=== PATIENT | male | born 1980 | race Caucasian/White ===

== ENCOUNTER 2018-03-25 14:46 | Emergency (ER) | payer MEDICAID, SELFPAY ==
[2018-03-25 14:47] VITALS: BP 117/71; PULSE 67; RESP 16; TEMP 36.4; O2SAT 100; BMI 17.1
--- NOTE | 2018-03-25 15:54 | CT_ITS ---
STUDY: CT BRAIN WITHOUT CONTRAST REASON FOR EXAM: Male, 37 years old. Headache RADIATION DOSAGE (If Supplied By Facility): CTDIvol = ( 44.99 ) mGy, DLP = ( 779.24 ) mGycm TECHNIQUE: Transaxial CT imaging of the brain was performed without administration of intravenous contrast material. Individualized dose optimization techniques were used for this CT. COMPARISON: None. FINDINGS: Normal soft tissue structures. Normal calvarium. Normal size ventricles and extra-axial spaces for the patient's age. Normal white matter tracts of the cerebral hemispheres. Normal basal ganglia and thalami. Normal brainstem. Normal cerebellum. There is no intracranial hemorrhage. There are no findings of an acute ischemic infarction. Normal visualized paranasal sinuses. CT/Brain/Head without Contrast IMPRESSION: Normal unenhanced CT scan of the brain. Electronically Signed: Rick Cid MD at 16:49 EDT , Service support ,
[2018-03-25 16:16] LABS: Bacteria 0 SEEN /hpf (None Seen); Red Blood Cells-Urine 0 SEEN /hpf (0-5); Squamous Epithelial Cells - UA 0 SEEN /hpf (0-5); White Blood Cells 0 SEEN /hpf (0-5)
[2018-03-25 16:21] LABS: Absolute Lymphocyte Count 1.75 X10^3/ul (0.83-4.51); Absolute Neutrophil Count 2.9 X10^3/uL (2.0-7.7); Basophil# 0.03 X10^3/uL; Basophil% 0.6 % (0-1); Eosinophil# 0.08 X10^3/uL; Eosinophils% 1.6 % (0-5); Hematocrit 42.7 % (40-54); Hemoglobin 14.4 g/dl (13.0-16.5); Lymphocyte # 1.75 X10^3/ul (4.0); Lymphocyte % 34.1 % (19-41); Mean Corp Hgb Conc 33.7 g/gl (32-36); Mean Corpuscular Hgb 31.4 pg (27.0-32.0); Mean Corpuscular Volume 93.2 fL (80-94); Monocyte% 7.8 % (0-10); Neutrophil # 2.87 X10^3/uL (2.7-7.7); Neutrophil % 55.9 % (47-70); Platelet Count 118 K/mm3 (150-450); RBC Distribution Width CV 12.5 % (11.6-14.6); RBC Distribution Width SD 42.5 fl (35.1-43.9); Red Blood Count 4.58 M/mm3 (4.6-6.2); White Blood Count 5.1 K/mm3 (4.4-11.0)
[2018-03-25 16:24] LABS: Color, Urine Yellow (Yellow); Glucose, Dipstick Normal (Normal); Ketone-Dipstick Negative (Negative); Leukocyte Esterase-Dipstick Negative /ul (Negative); Nitrite-Dipstick Negative (Negative); Occult Blood-Urine Negative /ul (Negative); Protein-Dipstick 30 mg/dl (Negative); Specific Gravity, Urine 1.015 (1.002-1.030); Urine Bilirubin Dipstick Negative (Negative); Urine Clarity Clear (Clear); Urine Urobilinogen Normal (Normal)
[2018-03-25 16:26] LABS: POSITIVE COUNT NO; POSITIVE DIFFERENTIAL NO; POSITIVE MORPHOLOGY NO
[2018-03-25 16:32] LABS: Anion Gap 4 (5-15); BUN 21 mg/dL (7-18); BUN/Creat Ratio 22.4 RATIO (10-20); Calcium,Total 8.8 mg/dL (8.5-10.1); Chloride 107 mmol/L (98-107); Creatinine, Serum 0.94 mg/dL (0.70-1.30); EST Glomerular Filtration Rate 95 mL/min (>60); Est Glom Filt Rate - Afr Amer 115 mL/min (>60); Glucose 79 mg/dL (74-106); Potassium 4.1 mmol/L (3.5-5.1); Sodium Level 139 mmol/L (136-145)
[2018-03-25 16:49] LABS: Mucous, Urine 1+ /hpf (<or=2+)
--- NOTE | 2018-03-25 17:03 | ED.DCSUM_ITS ---
- ER Visit Summary Date of Service: 03/25/18 Chief Complaint: Headache History of Present Illness: The patient is a 37 M with no primary care physician. He reports she has a headache on the left side that began approximately 1 week ago. Is gradually gotten worse. Is a sharp pain that is 10 out of 10 in severity. Is worsened by movement. Is not taking anything for pain. Reports she has been nauseated and vomited 3 times. No blood in his emesis. Last episode was 2 days ago. He does complain of photophobia. On review of systems patient reports that he has chronic abdominal pain that is unchanged. States that he was diagnosed with gastric cancer 2 years ago at [facility]. He states that he had one round of radiation and that they burned me. Because of this he is opted to not go back or have follow-up on this. He has never had chemo. He does not have an oncologist he sees. Patient also complains of hematuria that he has had for approximately 2 months. States that he went to an urologist for this and has been on multiple rounds of antibiotics. He has not had cystoscopy. He reports that he recently had testing for STDs that was negative. Physical Examination: Vitals: Stable. Afebrile. General: Well-nourished and well-developed. Head: Normocephalic atraumatic. Neck: Supple, no lymphadenopathy. No JVD. Nontender. Cardiovascular: Regular rate and rhythm. No murmurs. Respiratory: No respiratory distress. Clear to auscultation bilaterally. Abdominal: Soft, nontender, nondistended, normal bowel sounds. No guarding, rebound, or peritoneal signs. Back: Nontender. Extremities: Nontender, no edema. Skin: Normal color, no rash. Neurologic: Alert and oriented ?3. Cranial nerves II through XII are intact. Normal strength and sensation. Psych: Normal affect. Test Results: CT brain is normal. CBC is more for platelets of 118. Chem-7 is more for BUN of 21. UA is normal. Emergency Department Course and Treatment: Patient refused pain or nausea medications and is resting comfortably. Treatment Plan: I discussed with the patient that it would make sense for him to have a primary care physician that could collate all of these different visits and complaints to the [facility] system. He agrees that this may be helpful. He will be discharged instructions to follow-up with Dr. Hayes as soon as possible. He is also given the name of Dr. Pfeiffer, who is on-call for oncology, for follow-up and further evaluation of gastric cancer. Disposition: To home in improved and stable condition. Impression: 1. Cephalgia. 2. Reported history of gastric cancer. This note was generated with [employer] software. It may contain incorrect words, spelling, and punctuation that were not noted in review of the chart prior to signing ED Disposition - Plan for ED Patient: Disposition: Home or Assisted Living Chief Complaint: Headache Instructions: ED Cephalgia Unspecified Referrals: Eloisa Hayes MD [STAFF PHYSICIAN] - 1-2 Days if not improving Cahpo Pfeiffer DO [STAFF PHYSICIAN] - 1-2 Weeks
[2018-03-25 17:08] VITALS: PULSE 69; RESP 18; O2SAT 98
== END 2018-03-25 17:09 | disposition home or self-care (01) ==
PROVIDERS: Emergency Provider Emergency Medicine
DX: R51 Headache (principal); C16.9 Malignant neoplasm of stomach, unspecified; Z72.0 Tobacco use
CPT/HCPCS: 70450; 80048; 81001; 85025; 99284; A4216